=== PATIENT | female | born 1990 | race Caucasian/White ===

== ENCOUNTER → 2016-09-27 | Outpatient (CLI) | payer MEDICAID ==
[2016-09-27 19:11] LABS: HEMOGLOBIN 13.3 g/dL (12.2-16.2); LYMPH # 1.8 K/mm3 (0.7-4.5); LYMPH % 38.4 % (10-50.0)
[2016-09-27 21:09] LABS: BUN 11 mg/dL (7-18)
[2016-09-27 21:23] LABS: GFR (ESTIMATED) 122 ML/MIN (59-)
[2016-10-04 03:35] LABS: 1,25-Dihydroxy, Vitamin D-2 <10 pg/mL (.); 1,25-Dihydroxy, Vitamin D-3 54 pg/mL (.); Total 1,25-Dihydroxy,Vitamin D 64 pg/mL (.)
== END ==
LOC: LAB 18:46
PROVIDERS: Nurse Practitioner Family
DX: R53.1 Weakness (principal)